=== PATIENT | female | born 1965 | race Caucasian/White ===

== ENCOUNTER 2021-10-21 08:41 | Emergency (ER) | payer BC ==
[~2021-10-21] VITALS: Ht 165.1 cm; Wt 74.8 kg
[2021-10-21] MEDS ORDERED: predniSONE 20 MG TABLET ONE (09:29)
[2021-10-21] MEDS ORDERED: predniSONE 20 MG TABLET PO ONE (09:30)
--- NOTE | 2021-10-21 09:43 | NUR ---
[email or web address], medical screening exam in progress
[2021-10-21] MEDS ORDERED: ALBU8HFA4 INH (09:52)
[2021-10-21] MEDS ORDERED: PRED20TA PO (09:52)
[2021-10-21] MEDS ORDERED: ACETAMINOPHEN 650 MG/20.3 ML LIQUID UDC PO ONE (10:00)
[2021-10-21] MEDS ORDERED: ACETAMINOPHEN ES 500 MG TABLET ONE (10:04)
--- NOTE | 2021-10-21 10:05 | NUR ---
Note aly in ED - 10/21/21 at 1007 by ANALI Per 3rd floor staff Janneth, there are no available telemetry nurse or bed to take this patient at this time. Even nursing plastics supervisor Paris horton has 5 inpatients in the floor to take care of. Dr Brewer notified.
[2021-10-21 10:14] VITALS: BP 143/89
--- NOTE | 2021-10-21 10:16 | NUR ---
Patient discharged to home in stable condition. Written and verbal after care instructions given. Patient verbalizes understanding of instructions. Stressed follow up or return to ER for worsening s/s.
== END 2021-10-21 10:18 | disposition home or self-care (01) ==
LOC: ER 08:41
DX: J12.9 Viral pneumonia, unspecified (principal); Z20.822 Contact with and (suspected) exposure to COVID-19; R03.0 Elevated blood-pressure reading, without diagnosis of hypertension
CPT/HCPCS: 71045; 87426; 99284; J7512; A4663; A9150